=== PATIENT | female | born 1960 | race Caucasian/White ===

== ENCOUNTER → 2017-02-25 | Outpatient (CLI) | payer OTHER | LOC: FIMAGING 14:32 | PROVIDERS: ATTEND Internal Medicine | DX: R61 Generalized hyperhidrosis (principal) ==

== ENCOUNTER 2017-02-27 07:54 | Emergency (ER) | payer OTHER ==
[2017-02-27 07:59] VITALS: TEMP 98.1
--- NOTE | 2017-02-27 08:49 | EDPHY ---
H & P Time Seen by Provider: 02/27/17 08:46 HPI/ROS: CHIEF COMPLAINT: Right foot/ankle injury HISTORY OF PRESENT ILLNESS: Patient is a 48-year-old female who presents emergency department with right foot/ankle injury. The patient states she misstepped down 2 stairs. She twisted her ankle. She now has pain across the top of her midfoot. It is worse when she ambulates. She denies any numbness or tingling. She did not sustain any other injury. No previous ankle injury. REVIEW OF SYSTEMS: Negative Past Medical/Surgical History: Denies Smoking Status: Never smoked Physical Exam: General Appearance: Alert and no distress. Head: Pupils equal. Normal. Respiratory: No respiratory distress. Cardiac: regular rate and rhythm. Extremities: patient's right ankle and foot appear normal. There is no swelling or deformity. Patient has no proximal tib-fib tenderness palpation. The patient has no lateral malleolar tenderness palpation. She has mild medial malleolus tenderness palpation. There is no significant discomfort over the mid or forefoot. No rash or redness. Neurovascular intact distally Skin: No rashes or lesions. Neuro: Alert. Normal mood and affect. Constitutional: Initial Vital Signs Temperature (C) 36.7 C 02/27/17 07:57 Heart Rate 58 L 02/27/17 07:57 Respiratory Rate 17 02/27/17 07:57 Blood Pressure 136/63 H 02/27/17 07:57 O2 Sat (%) 98 02/27/17 07:57 O2 Delivery Mode Room Air Allergies/Adverse Reactions: No Known Allergies Allergy (Verified 02/27/17 07:56) Home Medications: Medication Instructions Recorded NK [No Known Home Meds] 02/27/17 Medical Decision Making ED Course/Re-evaluation: In the emergency department I discussed possible etiologies with the patient. She consented to an x-ray Right foot x-ray: Please refer the dictated report. Patient has a navicular fracture. Please refer the dictated report by Dr. Sloan. I discussed the results with the patient. I answered all her questions. She was given a short-leg Ortho Glass splint. Post splint placement she was neurovascular intact distally. She was given crutches. She was instructed to be nonweightbearing. She will follow up with Orthopedics. Differential Diagnosis: My differential includes but is not limited to fracture, dislocation, sprain, contusion, Lisfranc injury Departure - Departure Disposition: Home, Routine, Self-Care Clinical Impression: Right foot injury Qualifiers: Encounter type: initial encounter Qualified Code(s): S99.921A - Unspecified injury of right foot, initial encounter Right ankle sprain Qualifiers: Encounter type: initial encounter Involved ligament of ankle: other ligament Qualified Code(s): S93.491A - Sprain of other ligament of right ankle, initial encounter Navicular fracture, foot Qualifiers: Encounter type: initial encounter Fracture type: closed Fracture alignment: nondisplaced Laterality: right Qualified Code(s): S92.254A - Nondisplaced fracture of navicular [scaphoid] of right foot, initial encounter for closed fracture Condition: Good Instructions: Foot Fracture in Adults (ED) Additional Instructions: Keep your splint in place. You should be nonweightbearing. Follow up with Orthopedics. Referrals: Nitin Cano MD [Medical Doctor] - 5-7 days, call for appt.
[2017-02-27 10:08] VITALS: BP 140/90; PULSE 72; RESP 16; O2SAT 95
== END 2017-02-27 10:24 | disposition home or self-care (01) ==
DX: S92.254A Nondisplaced fracture of navicular [scaphoid] of right foot, initial encounter for closed fracture (principal); S93.401A Sprain of unspecified ligament of right ankle, initial encounter; X50.9XXA Other and unspecified overexertion or strenuous movements or postures, initial encounter

== ENCOUNTER → 2017-05-31 | Outpatient (CLI) | payer OTHER | LOC: FIMAGING 09:55 | PROVIDERS: ATTEND Physician Assistant | DX: N28.89 Other specified disorders of kidney and ureter (principal) ==

== ENCOUNTER → 2017-07-08 | Outpatient (CLI) | payer OTHER | LOC: FIMAGING 11:30 | PROVIDERS: ATTEND Obstetrics & Gynecology | DX: Z12.31 Encounter for screening mammogram for malignant neoplasm of breast (principal) ==

== ENCOUNTER → 2017-10-25 | Outpatient (CLI) | payer OTHER | LOC: BMCIMAGING 15:30 | PROVIDERS: ATTEND Internal Medicine | DX: R53.83 Other fatigue (principal); R61 Generalized hyperhidrosis ==

== ENCOUNTER → 2018-07-05 | Outpatient (CLI) | payer OTHER | LOC: FIMAGING 14:52 | PROVIDERS: ATTEND Internal Medicine | DX: Z13.83 Encounter for screening for respiratory disorder NEC (principal) ==